=== PATIENT | male | born 1970 | race Hispanic/Latino ===

== ENCOUNTER 2019-03-09 06:04 | Emergency (ER) | payer OTHER ==
[2019-03-09 06:09] VITALS: BP 132/84
[2019-03-09] MEDS ORDERED: BOOSTRIX IM ONE (06:18)
[2019-03-09] MEDS ORDERED: NORCO 5/325 PO ONE (06:19)
[2019-03-09] MEDS ORDERED: IBUPROFEN PO ONE (06:22)
[2019-03-09] MEDS ORDERED: TYLENOL PO ONE ×2 (06:22→06:32)
[2019-03-09] MEDS ORDERED: TYLENOL ONE (06:25)
[2019-03-09] MEDS ORDERED: IBUPROFEN ONE (06:25)
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
[2019-03-09] MEDS ORDERED: TRIPLE ANTIBIOTIC TP ONE ×2 (07:12)
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
== END 2019-03-09 08:40 | disposition home or self-care (01) ==
LOC: ED 06:04
DX: S40.811A Abrasion of right upper arm, initial encounter (principal); M25.511 Pain in right shoulder; R51 Headache; F17.200 Nicotine dependence, unspecified, uncomplicated; Z79.899 Other long term (current) drug therapy; V89.2XXA Person injured in unspecified motor-vehicle accident, traffic, initial encounter; Y93.89 Activity, other specified; Y92.89 Other specified places as the place of occurrence of the external cause; Y99.8 Other external cause status
CPT/HCPCS: 70450; 71046; 72125; 90471; 90715; A6250